=== PATIENT | female | born 1980 | race Two or more races ===

== ENCOUNTER 2018-05-16 12:56 | Inpatient (IN) | payer OTHER ==
--- NOTE | 2018-05-16 13:13 | EDPHY ---
H & P Time Seen by Provider: 05/16/18 13:01 HPI/ROS: HPI M1 hold, borderline personality disorder. 46-year-old female by ambulance on an M1 hold from the walk-in clinic of [facility]. She was seen by [facility] in the clinic about an hour ago. She states that she has been doing cocaine and methamphetamine. She was placed on an M1 hold by the staff at [facility] secondary to acute psychosis. She has a diagnosis borderline personality disorder. She tells me that she has 13 different personalities and a oral pick her ring but she is currently trying to keep things under control. There is no history of trauma. She denies alcohol or other ingestion. She denies being suicidal. ROS: Constitutional: No fever, no chills. No weakness. Eyes: No discharge. No changes in vision. ENT: No sore throat. No nasal congestion or rhinorrhea. Respiratory: No cough. No shortness of breath. Cardiac: No chest pain, no palpitations. Gastrointestinal: No abdominal pain, no vomiting, no diarrhea. Genitourinary: No hematuria. No dysuria or increased frequency with urination. Musculoskeletal: No back pain. No neck pain. No myalgias or arthralgias. Skin: No rashes. Neurological: No headache. No focal weakness or altered sensation. Past medical history: Borderline personality disorder. Social history: She denies smoking. Denies alcohol. Methamphetamine and cocaine today. Physical Exam: General Appearance: Alert, agitated, motion labile. This patient is responding to questions appropriately and in full sentences. This patient appears well-hydrated and well-nourished. Eyes: Pupils equal and round no pallor or injection. No lid edema, erythema or injection. Respiratory: There are no retractions, lungs are clear to auscultation with good air movement bilaterally. Cardiovascular: Regular rate and rhythm. No murmur. Gastrointestinal: Abdomen is soft and nontender, no masses, bowel sounds normal. No focal tenderness at McBurney's point. No Parker sign. Neurological: Motor sensory function is grossly intact. Cranial nerves are normal. Gait is normal. Skin: Warm and dry, no rashes. Musculoskeletal: Neck is supple and nontender. Extremities are symmetrical. All joints range without pain or impingement. Psychiatric: As above. Database: EKG: Imaging: Procedures: Emergency department course: Triage vital signs reviewed. Patient has been evaluated by [facility]. She was sent here on an M1 hold by them. 3:20 p.m., the patient is still awaiting evaluation by Behavioral Health. She will likely be admitted for inpatient management. Blood work and urine reviewed. She has a normocytic anemia. No prior records do indicate whether this is chronic. Denies any rectal bleeding or black stool. No lightheadedness. Vital signs have been normal. Assuming patient admitted for inpatient management will have a CBC recheck tomorrow. 9:00 p.m., the patient has been seen and evaluated by Behavioral Health. Tentative plan is transfer to [address] [place] [address]. Care turned over to Dr. Roddy Balderas at this time. Differential Diagnosis: The differential diagnosis on this patient includes but is not limited to acute psychosis, acute royce, schizophrenia, borderline personality disorder. This represents a partial list of diagnoses considered. These considerations are based on history, physical exam, past history, reassessment and diagnostic testing. Constitutional: Initial Vital Signs Temperature (C) 36.9 C 05/16/18 13:38 Heart Rate 84 05/16/18 13:38 Respiratory Rate 18 05/16/18 13:38 Blood Pressure 104/58 L 05/16/18 13:38 O2 Sat (%) 95 05/16/18 13:38 O2 Delivery Mode Room Air Allergies/Adverse Reactions: No Known Allergies Allergy (Unverified 05/16/18 15:01) Medical Decision Making - Data Points Laboratory Results: Laboratory Results 05/16/18 14:25 05/16/18 13:25 05/16/18 05/16/18 05/16/18 14:25 13:25 13:19 WBC 8.21 10^3/uL 10^3/uL (3.80-9.50) RBC 3.26 10^6/uL L 10^6/uL (4.18-5.33) Hgb 9.8 g/dL L g/dL (12.6-16.3) Hct 29.2 % L % (38.0-47.0) MCV 89.6 fL fL (81.5-99.8) MCH 30.1 pg pg (27.9-34.1) MCHC 33.6 g/dL g/dL (32.4-36.7) RDW 13.1 % % (11.5-15.2) Plt Count 211 10^3/uL 10^3/uL (150-400) MPV 10.4 fL fL (8.7-11.7) Neut % (Auto) 72.1 % % (39.3-74.2) Lymph % (Auto) 18.4 % % (15.0-45.0) [place] % (Auto) 5.7 % % (4.5-13.0) Eos % (Auto) 3.2 % % (0.6-7.6) Baso % (Auto) 0.5 % % (0.3-1.7) Nucleat RBC Rel Count 0.0 % % (0.0-0.2) Absolute Neuts (auto) 5.92 10^3/uL 10^3/uL (1.70-6.50) Absolute Lymphs (auto) 1.51 10^3/uL 10^3/uL (1.00-3.00) Absolute Monos (auto) 0.47 10^3/uL 10^3/uL (0.30-0.80) Absolute Eos (auto) 0.26 10^3/uL 10^3/uL (0.03-0.40) Absolute Basos (auto) 0.04 10^3/uL 10^3/uL (0.02-0.10) Absolute Nucleated RBC 0.00 10^3/uL 10^3/uL (0-0.01) Immature Gran % 0.1 % % (0.0-1.1) Immature Gran # 0.01 10^3/uL 10^3/uL (0.00-0.10) Sodium 137 mEq/L mEq/L (135-145) Potassium 4.9 mEq/L mEq/L (3.3-5.0) Chloride 108 mEq/L mEq/L (97-110) Carbon Dioxide 20 mEq/l L mEq/l (22-31) Anion Gap 9 mEq/L mEq/L (8-16) BUN 14 mg/dL mg/dL (7-23) Creatinine 0.7 mg/dL mg/dL (0.6-1.0) Estimated GFR > 60 Glucose 99 mg/dL mg/dL (70-100) Calcium 8.7 mg/dL mg/dL (8.5-10.4) Beta HCG, Qual Specimen Hemolysis 242 Urine Opiates Screen NEGATIVE (NEGATIVE) Urine Barbiturates NEGATIVE (NEGATIVE) Ur Phencyclidine Scrn NEGATIVE (NEGATIVE) Ur Amphetamine Screen NEGATIVE (NEGATIVE) U Benzodiazepines Scrn NEGATIVE (NEGATIVE) Urine Cocaine Screen NEGATIVE (NEGATIVE) U Marijuana (THC) Screen NON-NEGATIVE H (NEGATIVE) Ethyl Alcohol < 10 mg/dL mg/dL (0-10) 05/16/18 13:05 WBC RBC Hgb Hct MCV MCH MCHC RDW Plt Count MPV Neut % (Auto) Lymph % (Auto) [place] % (Auto) Eos % (Auto) Baso % (Auto) Nucleat RBC Rel Count Absolute Neuts (auto) Absolute Lymphs (auto) Absolute Monos (auto) Absolute Eos (auto) Absolute Basos (auto) Absolute Nucleated RBC Immature Gran % Immature Gran # Sodium Potassium Chloride Carbon Dioxide Anion Gap BUN Creatinine Estimated GFR Glucose Calcium Beta HCG, Qual NEGATIVE Specimen Hemolysis Urine Opiates Screen Urine Barbiturates Ur Phencyclidine Scrn Ur Amphetamine Screen U Benzodiazepines Scrn Urine Cocaine Screen U Marijuana (THC) Screen Ethyl Alcohol Medications Given: Discontinued Medications Olanzapine (Zyprexa Zydis) 10 mg PO EDNOW ONE Stop: 05/16/18 16:49 Last Admin: 05/16/18 17:19 Dose: 10 mg Departure - Departure Disposition: [facility] IP Clinical Impression: Manic behavior, Psychosis Referrals: Patient,NotPresent [Unknown] - As per Instructions
[2018-05-16 14:33] LABS: PLATELET COUNT 211 10^3/uL (150-400)
[2018-05-16] MEDS ORDERED: OLANZapine DISINTEGR 10 MG TAB PO ONE (16:48)
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
--- NOTE | 2018-05-16 20:37 | ASMTTCLDSP ---
TLC Discharge Disposition Disposition: Answers: Admit Disposition Notes: Notes: Pt to be admitted to [address] [place] [address] Discharge Concerns/Recommendations: Notes: In consultation with Dr. Dent, ED MD and completion engineer psychiatrist, Dr. Roxy Conway both concurred that pt meets the 27-65 criteria requiring psychiatric in-pt hospitalization as pt appears to be gravely disabled. Was patient given the Answers: Yes Inpatient Behavioral Health Prohibited Belongings List while in the ED? For inpatient Roxy Conway MD admission, the following psychiatrist agreed to accept patient for admission to [facility] ([facility]): Type of Hold: Answers: M1/72-hour Hold Hold initiated by: Answers: Other Notes: [facility] Date Signed: 05/16/2018 08:36 PM Electronically Signed By:Alice Shankar
[2018-05-16] MEDS ORDERED: MAGNESIUM HYDROXIDE 30 ML UDCUP PO PRN (23:08)
[2018-05-16] MEDS ORDERED: MAG HYDROX/AL HYDROX/SIMETH 30 ML UDCUP PO PRN (23:08)
[2018-05-16] MEDS ORDERED: NICOTINE POLACRILEX 2 MG GUM B PRN (23:08)
[2018-05-17] MEDS: OLANZapine 10 MG TAB PO PRN ×3 (07:29→17:07)
[2018-05-17] MEDS: LORazepam 0.5 MG TAB PO PRN ×3 (07:29→17:07)
--- NOTE | 2018-05-17 08:19 | ASMTBHMTP ---
Master Treatment Plan Master Treatment Plan Answers: Mood Instability with for: Psychosis Date: 05/17/2018 Diagnosis on Admission: 296,89 (F31.81) Bipolar II Disorder, hypomanic, with mood-congruent psychotic features Expected length of stay: 5-7 Reason for admission: Notes: Per TLC report: "This 37 y/o. , but , unemployed, homeless female was seen as a walk-in at the [facility] Crisis clinic and due to her agitation and manic presentation was transported to the [facility] for further evaluation on an M-1. She presented as manic, dysregulated, grandiose. She reports connections with others that are psychic and reports multiple personalities". Patient's stated presenting problems: Notes: "I need to find my baseline. I have multiple personalities". Patient's goals for treatment: Notes: "To be able to leave the hospital with an accurate diagnosis". Patient's strengths: Notes: "My imagination". Identify supports outside of hospital: Notes: No local support system. Discharge criteria: Notes: Ct. will demonstrate more stable mood by discharge. Initial disposition plan/considerations: Notes: Consider [facility] for follow up care in the community. Master Treatment Plan Required Signatures Psychiatrist signature: Answers: Psychiatrist: RN on-shift signature: Answers: RN: Patient signature: Answers: Patient: Date Signed: 05/17/2018 08:19 AM Electronically Signed By:Emely Bills
--- NOTE | 2018-05-17 08:29 | ASMTCMCOM ---
CM Note CM Note Notes: CC met with ct. to develop MTP. Ct. presented as labile, agitated with pressured speech. Grooming was fine. She reported that she would like girma participate in every decision related to her care. She said that she is not interested in taking medications because she would like to know her "baseline". She reported that her brain is "different". She agreed to participate in groups. She has been residing in [place] in the last 14 years and has been receiving services at [facility]. She is not currently interested in returning to [facility] but this may change when she stabilizes. Date Signed: 05/17/2018 08:28 AM Electronically Signed By:Emely Bills
[2018-05-17 08:50] LABS: PLATELET COUNT 381 10^3/uL (150-400)
--- NOTE | 2018-05-17 13:42 | BCON ---
INTERNAL MEDICINE CONSULTATION DATE OF CONSULTATION: 05/17/2018 REFERRING PHYSICIAN: DR. OLVERA REASON FOR REFERRAL: Medical clearance for inpatient behavioral health stay. HISTORY OF PRESENT ILLNESS: This patient was referred to the emergency department yesterday from the walk-in clinic of [facility], where she had presented as manic and psychotic. She was evaluated by the mental health team and admitted for further psychiatric care. She currently complains of feeling fatigued and of having pain "all over my body." PAST MEDICAL HISTORY: 1. Mental health issues with the diagnosis in the chart of borderline personality disorder. 2. She reports a history of cardiac arrhythmia. 3. Anemia. 4. Obesity. PAST SURGICAL HISTORY: She denies any surgeries. MEDICATIONS: Prior to admission, she was on no medications, though she has had 3 recent psychiatric hospitalizations. SOCIAL HISTORY: She is homeless. She has a 12-year-old child, who lives with paternal grandparents. She is a smoker. She has a history of polysubstance abuse but reports no use of cocaine or methamphetamine for several months. FAMILY HISTORY: She is adopted and does not know her family history. REVIEW OF SYSTEMS: Positive for fatigue and sleepiness, pain all over. She denies history of heavy menstrual periods. She reports her weight has been stable. She says that pain is worse when she is under more stress or not sleeping well. She denies increased pain with activity. In fact, she says activity makes the pain better. She says she has some tenderness over her head and neck and currently in her right hand, but otherwise denies tenderness. She denies nausea, vomiting, constipation, or diarrhea. She denies dysuria or urinary frequency. She denies joint pain or joint swelling. Otherwise, a 10- point review of systems is negative. PHYSICAL EXAM: VITAL SIGNS: Blood pressure is 143/70, heart rate 91, respiratory rate is 20, oxygen saturation is 92% on room air. Temperature is 36.8 degrees centigrade. Her weight is 117.9 kg for a body mass index of 43.3. GENERAL: This is a very obese woman, ambulating in the mendieta, dressed in street clothes, cooperative, and in no acute distress. HEENT: Extraocular movements are intact. Mucous members are moist. Dentition is in good condition. She has a crowded airway, Mallampati class 3. NECK: Supple. HEART : There is a regular rate and rhythm with no murmurs, rubs, or gallops. LUNGS : Clear to auscultation bilaterally. ABDOMEN: Benign. EXTREMITIES: There is no cyanosis or clubbing. NEUROLOGIC: She is alert and oriented x3. She is sleepy. Cranial nerves 2-12 are grossly intact. There is no focal weakness. Sensation is intact to light touch, and gait is within normal limits. LABORATORY STUDIES: From yesterday, CBC was initially within normal limits. She must have been hydrated, because subsequently she developed anemia with a hemoglobin of 9.8 and a hematocrit of 29.2. Serum chemistry revealed normal renal function and electrolytes. Her carbon dioxide was slightly low at 20. Hemoglobin A1c was normal at 5.5. Liver function tests revealed an elevated conjugated bilirubin slightly at 0.7 with the upper limit of normal being 0.5. AST was slightly elevated at 68 with the upper limit of normal being 46. ALT was normal. Alkaline phosphatase was slightly elevated at 129 with the upper limit of normal being 126. Lipid panel was without abnormalities. TSH was normal at 0.695. Beta hCG was negative for . Toxicology screen in the urine was non-negative for marijuana but otherwise negative for substances of abuse. Toxicology screen in the serum was negative for ethyl alcohol. ASSESSMENT AND RECOMMENDATIONS: 1. Mental health issues. Pending further evaluation and management per Psychiatry and the mental health team. 2. Anemia, unclear etiology. I will add on a reticulocyte count and iron studies. She reports that she will only take iron in the form of red meat and the dietitian could make a note of this. 3. Obesity. Consider avoiding medications that would cause further weight gain , but psychosocial stabilization takes priority at this point. 4. Tobacco dependence. She was encouraged to stop smoking, and she said she is not smoking very much anymore, though she did take nicotine replacement today. 5. Chronic pain of unclear etiology. I hesitate to consider fibromyalgia, especially without a self report of tenderness. Wonder if this will improve with stabilization of her psychiatric state and improved sleep. 6. Elevated blood pressure. Advise monitoring blood pressure, and if she has consistent elevated blood pressure, would consider initiating medications. 7. Risk for obstructive sleep apnea. She describes snoring, and she has a crowded airway. It would be appropriate to refer her for a sleep study after her discharge. 8. Self report of cardiac arrhythmia. I will get an EKG. I see no medical contraindications to this patient's continued stay on the inpatient behavioral health unit or to any psychiatric medications or procedures. Thank you very much for including me in the care of this patient, and please do not hesitate to contact me or the hospitalist service should there be need for further medical evaluation. /[id number]/MODL MTDD
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
--- NOTE | 2018-05-17 15:11 | PDMN ---
Medical Necessity Medical necessity: Pt meets inpt criteria per MD order and [facility] [id number], Bipolar Disorders, Adult: Inpatient Care, 4 days. Pt admitted on M1 Hold, presented as manic, dysregulated, grandiose requiring inpt hospitalization, anticipate>2MN for eval treatment of bipolar II disorder, hypomanic w/mood- congruent psychotic features.
[2018-05-18] MEDS: OLANZapine 10 MG TAB PO PRN ×2 (05:06→08:57)
[2018-05-18] MEDS: LORazepam 0.5 MG TAB PO PRN (08:57)
--- NOTE | 2018-05-18 14:58 | ASMTCMCOM ---
CM Note CM Note Notes: CC checked in with the patient, who completed an PRAVEEN from [facility] and [facility]. CC sent a referral for services at [facility]. The patient agreed that she would like to seek their services upon discharge. She stated that she was seeing Dr. Sanchez, Ashlyn Rocha, and Marycruz Junior at [facility] prior to March of this year, when Dr. Sanchez retired. She reported that she missed her last appointment with him because she didn't have bus fare and was unable to obtain transport. She stated that she was medication adherent and that she had only missed her last dose by twelve hours prior to [facility] ED admission. The patient stated that she didn't want to work with [facility] anymore because "they don't do there jobs." She also stated that she came to [facility] initially because "I had to do what I had to do to get a safe place to sleep." The patient leaned towards the CC and stated, "I worked the system." CC called and left messages with [facility] staff and Petra Rodriguez, [facility] OP, referring the patient for the DBT-IOP program. Date Signed: 05/18/2018 02:57 PM Electronically Signed By:Karen Nj
--- NOTE | 2018-05-18 16:00 | CPEKG ---
Test Reason : OPEN Blood Pressure : / mmHG Vent. Rate : 059 BPM Atrial Rate : 063 BPM P-R Int : 156 ms QRS Dur : 088 ms QT Int : 408 ms P-R-T Axes : 054 064 054 degrees QTc Int : 405 ms SINUS RHYTHM Confirmed by Jono Carrasquillo ([id number]) on 05/18/2018 4:00:11 PM Referred By: Confirmed By:Jono Carrasquillo
--- NOTE | 2018-05-18 17:54 | SOAPPROG ---
SOAP Progress Note Assessment/Plan: Assessment: 37 yo woman with h/o mood dysregulation and cocaine, meth and THC abuse. She reports h/o "bipolar II" and "multiple personality disorder." Plan: 05/18/18 17:50 1. Patient signed PRAVEEN for [facility] for more collateral information about her previous psych tx. 2. Patient states she wants to stay in [place] to get "housing." 3. [facility] expires 05/19/18 at 1150. Subjective: Patient told CC this AM that she came to [place] to get "better housing." She claims the reason she went to [facility] ED and the [facility] was b/c "I know how to work the system to get a safe place to stay." She admits she didn't feel safe staying on the streets or in the homeless jail and wanted to be in hospital instead. In the past, patient reports she has seen Dr. Sanchez at [facility], but admits she was never compliant with treatment and had missed a lot of her appointments. She wants to get established with [facility] b/c [place] is a "better place to live" than [place]. Patient states she has "multiple voices in multiple bodies." She reports that the meds she took last night and this AM (Olanzapine and Ativan) did "silence the voices." She denies any thoughts, plan or intent to hurt herself or anyone else. Objective: Vital Signs Temp Pulse Resp BP Pulse Ox 36.5 C 95 16 106/68 97 05/18/18 05:23 05/18/18 05:23 05/18/18 05:23 05/18/18 05:23 05/18/18 05:23 MSE: Affect: Euthymic Mood: "OK" TP: Loose, tangential TC: Denies SI/HI Perception: Denies AH/VH currently, says meds "silenced voices" Insight/ Judgment: Impaired - Time Spent With Patient Time Spent With Patient: 15" - Pending Discharge Pending Discharge Within 24 Hours: No Pending Discharge Within 48 Hours: No ICD10 Worksheet Patient Problems: Problems Problem Status Onset Manic behavior Acute Psychosis Acute
[2018-05-18] MEDS: ACETAMINOPHEN 325 MG TAB PO PRN (18:01)
[2018-05-18] MEDS: OLANZapine DISINTEGR 10 MG TAB PO SCH (20:04)
[2018-05-19] MEDS: OLANZapine 10 MG TAB PO PRN (05:44)
[2018-05-19 07:58] VITALS: BP 119/66
[2018-05-19] MEDS: LORazepam 0.5 MG TAB PO PRN (08:02)
[2018-05-19] MEDS: ACETAMINOPHEN 325 MG TAB PO PRN ×3 (08:05→19:34)
[2018-05-19 09:13] LABS: PLATELET COUNT 339 10^3/uL (150-400)
--- NOTE | 2018-05-19 16:50 | SOAPPROG ---
SOAP Progress Note Assessment/Plan: Assessment: 37 yo woman with h/o mood dysregulation and cocaine, meth and THC abuse. She reports h/o "bipolar II" and "multiple personality disorder." Plan: 05/18/18 17:50 1. Patient signed [facility]AVEEN for [facility] for more collateral information about her previous psych tx. 2. Patient states she wants to stay in [place] to get "housing." 3. [facility] expires 05/19/18 at 1150. 05/19/18 16:47 1. Patient has been sleeping most of the day. 2. Patient compliant with meds. 3. Change to voluntary status. Subjective: Patient requests MD and staff "don't wake me up when I'm sleeping." Patient denies SI/HI, she denies any paranoid delusions and hallucinations. She shows no evidence of royce or psychosis. However, she says when people wake her up, " I don't know what personality you're going to find." Objective: Vital Signs Temp Pulse Resp BP Pulse Ox 36.7 C 73 18 119/66 97 05/19/18 07:57 05/19/18 07:57 05/19/18 07:57 05/19/18 07:57 05/19/18 07:57 Laboratory Results 05/19/18 06:30 MSE: Affect: Euthymic Mood: "OK" TP: Linear TC: Denies any SI/HI Perception : Denies AH/VH Insight/Judgment: Poor a/e/b h/o noncompliance and drug abuse - Time Spent With Patient Time Spent With Patient: 15" - Pending Discharge Pending Discharge Within 24 Hours: No Pending Discharge Within 48 Hours: Yes Pending Discharge Date: 05/21/18 (Likely to d/c Mon or Tue once f/u finalized) Pending Discharge Time: 11:00 ICD10 Worksheet Patient Problems: Problems Problem Status Onset Manic behavior Acute Psychosis Acute
[2018-05-19] MEDS: OLANZapine DISINTEGR 10 MG TAB PO SCH (19:33)
[2018-05-20] MEDS: OLANZapine 10 MG TAB PO PRN (06:28)
[2018-05-20] MEDS: LORazepam 0.5 MG TAB PO PRN (06:47)
[2018-05-20] MEDS: ACETAMINOPHEN 325 MG TAB PO PRN (06:50)
--- NOTE | 2018-05-20 11:11 | ASMTBHDC ---
Notes Note: Notes: CC confirms discharge plan: Follow Up With: [facility] [address] [place], [address] O# [phone] [facility]: Sunday-Sunday from 8:30-11:30 & 12:30-14:30; excluding afternoons Please follow up on the @ 08:30 at the above location. This is for the initial 30 minute appointment to do paperwork and CT should bring ID, insurance card, etc. Date Signed: 05/20/2018 11:10 AM Electronically Signed By:Nolan Ocampo
--- NOTE | 2018-05-20 12:08 | BDS ---
REASON FOR ADMISSION: From the ED note dated 05/16/2018, the patient presented to the ED by ambulance on an M1 hold from the walk-in clinic at [facility]. The patient had presented at [facility] approximately 1 hour prior to presenting at the ER. The patient stated that she has been doing cocaine and methamphetamine. The patient was placed on an M1 hold by the staff at [facility] secondary to acute psychosis. The patient has a diagnosis of borderline personality disorder. There is no history of trauma. The patient denied alcohol or other ingestion. The patient denied being suicidal. The patient was admitted involuntarily on an M1 hold due to being gravely disabled due to a mental illness. The patient was admitted for safety, crisis stabilization, and medication evaluation. ADMITTING DIAGNOSES: Borderline personality disorder, malingering, stimulant- induced psychosis, stimulant use disorder amphetamine type. ADMISSION PHYSICAL EXAM: The patient was seen by Dr. Perkins on 05/17/2018, for an internal medicine consultation for medical clearance for inpatient Behavioral Health stay. Dr. Perkins reported he saw no medical contraindications to the patient's continued stay on the inpatient behavioral health unit or to any psychiatric medications or procedures. For further details, please refer to Dr. Perkins's note dated 05/17/2018. ADMISSION LABS: From 05/16/2018, CBC was initially within normal limits. The patient must have been hydrated because subsequently she had developed anemia with a hemoglobin of 9.8 and a hematocrit of 29.2. Serum chemistry revealed normal renal function and electrolytes. The patient's carbon dioxide was slightly low at 20. Hemoglobin A1c was normal at 5.5. Liver function tests revealed an elevated conjugated bilirubin slightly at 0.7, with an upper limit of normal being 0.5. AST was slightly elevated at 68, with the upper limit of normal being 46. ALT was normal. Alkaline phosphatase was slightly elevated at 129, with the upper limit of normal being 126. Lipid panel was without abnormalities. TSH was normal at 0.695. Beta hCG was negative for . Toxicology screen in the urine was nonnegative for marijuana, but otherwise negative for substances of abuse. Toxicology screen in the serum was negative for ethyl alcohol. MAJOR PROCEDURES OR TESTS: None. HOSPITAL COURSE: Patient reported using cocaine and methamphetamine prior to admission. The most prominent symptoms and behaviors while the patient was here were the patient presented irritable, agitated. Sometimes the patient's behavior was hysterical, labile. Target symptoms during hospitalization, acute agitation. Patient reported to patient care manager during interview, "Well, I am here because you have to know how to work the system." Treatment modalities utilized were milieu and group therapy. Zyprexa 5 mg p.o. q.4 hours p.r.n. was started to target acute agitation, was tolerated with no report of side effects and with good response. Ativan 0.5-1 mg p.o. q.4 hours p.r.n. was started to target acute agitation, was tolerated with no report of side effects and with good response. Zyprexa Zydis 10 mg p.o. q.h.s. was started to target acute psychosis, was tolerated with no report of side effects and with good response. The patient has improved considerably, with no psychiatric symptoms and no psychiatric symptoms expressed at discharge. The patient reports she has improved since admission, states to be in stable condition, feels safe to discharge, and she contracts for safety. Patient's response to treatment was good. There were no adverse or unexpected results of treatment. The patient was safe throughout her stay. The treatment team consensus is the patient is in stable condition and is safe to discharge today. CONDITION ON DISCHARGE: Patient is in stable condition and is no longer a danger to self or others, and is not gravely disabled due to mental illness. Patient is no longer in need of inpatient level of care, and can be safely and effectively treated within the community. The patients level of risk at time of discharge is low. MSE: The patient is casually dressed and with good hygiene , and looks stated age. Patient is sitting, posture is upright, and position is relaxed. Patient appears awake, alert, and responds appropriately and reasonably during interview. Patient is engaged, relates well to interviewer, and emotional facial expression is appropriate to situation and changes appropriately with topic. Patient is cooperative, makes comfortable eye contact , and movements are voluntary, deliberate, coordinated, and smooth and even with no inappropriate movements. Patient makes laryngeal sounds effortlessly and shares conversation appropriately; pace of conversation is appropriate, and stream of talking is fluent; articulation is clear and understandable; word choice is effortless and appropriate for education level; completes sentences, occasionally pausing to think; rate and volume are appropriate for interview and setting. Patient reports mood as euthymic. Patients affect is stable with full variable range, congruent with mood, and appropriate to speech and circumstances. Patient has linear and logical thinking, with no loose associations, tangential thought, thought blocking, concrete thinking, or any other signs of formal thought disorder. Patient denies suicidal and homicidal ideation, and denies hallucinations and delusions. Patient appears to be a reliable historian with sound judgement and good insight into current condition. Patient has no apparent dysfunction in recent or remote memory noted , and no evidence of gross cognitive dysfunction noted at any point during the interview. DISCHARGE DIAGNOSES: Borderline personality disorder, malingering, stimulant- induced psychosis, stimulant use disorder amphetamine type. CURRENT MEDICATIONS: None. The patient stated she did not require prescriptions at time of discharge, and no medications are indicated for the patient at this time. DISPOSITION: Patient left hospital independently and voluntarily with plans to go to [facility] walk-in clinic. The patient care manager will accompany the patient to the [facility] for the patient's walk-in appointment. Patient plans to return to [place] to be closer to her daughter. FOLLOWUP: online marketing coordinator reports the appropriate outpatient follow-up services have been established and outpatient appointments have been scheduled. The patient received written instructions with times and dates of outpatient follow-up appointments. The following follow-up recommendations were provided to the patient at discharge: Continue psychotropic medications as prescribed and attend appointments as scheduled. Report any side effects to a psychiatric outpatient provider, a primary care provider, or other health care attendant. Address any questions or problems concerning the psychotropic medications with a psychiatric outpatient provider, a primary care provider, or other health care attendant. Contact [facility] or [facility], or go to the nearest emergency room, if you are ever a danger to yourself/others, or unable to care for yourself. As soon as possible, establish a routine medication management treatment with a psychiatric provider, establish routine therapy appointments, and follow-up with a primary care provider. SUBSTANCE ABUSE BRIEF INTERVENTION: Brief intervention regarding the risks of cocaine and methamphetamine abuse is provided to patient with goal to reduce the risk of harm that could result from the continued use of cocaine and methamphetamine abuse, with the general aim to investigate the problem, raise awareness of problem, develop a solution with the patient, recommend a specific change or activity, and motivate the patient toward change. Assess substance abuse behavior and give supportive advice about harm reduction, recommend a reduction in hazardous/at-risk consumption patterns, and facilitate referrals for additional specialized treatment with patient care manager. Intermediate goal is for the patient to quit use of stimulants and attend NA meetings. Intervention focus on intermediate goals to allow for more immediate success in the treatment process to keep the patient motivated. Review following with patient: Cocaine use risks: Short-term: erratic and violent behavior, panic attacks, paranoia, psychosis; heart rhythm problems, heart attack; stroke, seizure, coma. Long-term: Loss of sense of smell, nosebleeds, nasal damage and trouble swallowing from snorting; infection and of bowel tissue from decreased blood flow; poor nutrition and weight loss; lung damage from smoking. Methamphetamine use risks: Short-term: insomnia, irritability, aggressive behavior, hallucinations, delusions, intellectual deficits, anxiety, depression , convulsions, damage to blood vessels in the brain causing strokes, high fevers , collapse of the circulatory system. Long-term: damage to nerve pathways, maybe irreversibly; overstimulation to dopamine impairing dopamine transport and reducing efficiency of dopamine receptors, the reward system becomes worn out, leading to inability to experience pleasure for years. LEGAL COURSE: The patient was admitted on an M1 hold for involuntary inpatient psychiatric hospitalization. The patient became voluntary during her stay, and the patient discharged today independently and voluntarily. ATTITUDE AT TIME OF DISCHARGE: The patient reports, "I came here to get to my baseline; that was my goal. I am now at my baseline, and I am ready to discharge." The patient reported to the patient care manager during interview, "Well , I had to work the system. I needed a place to stay for a while." The patients attitude was positive at time of discharge, and patient reports looking forward to discharging today. The patient reports she feels safe to discharge, is no longer a danger to herself or others, is in stable condition, and contracts for safety. Patient states she will continue medications as prescribed, and establish medication management treatment with an outpatient provider after discharge. Patient reports she understands the information that has been provided to her, and she understands, accepts, and agrees to psychotropic medications. Patient describes internal protective factors as the coping skills she has learned while hospitalized here, and she plans to continue to practice these coping skills after discharge. LABS AND STUDIES: There were no pending labs or studies at time of discharge. ADVANCE DIRECTIVES: There were no advance directives on file, and the patient was full code during her hospitalization. Review safety plan and the importance to contact [facility] or [facility] , or go to the nearest emergency room, if ever a danger to yourself/others, or unable to care for yourself. Recommend upon discharge to establish routine medication management treatment with a psychiatric provider, establish routine therapy appointments, and follow-up with a primary care provider. Verify patient understands, accepts, and agrees to the information that has been provided. /[id number]
== END 2018-05-20 12:50 | disposition home or self-care (01) | DRG 883 ==
LOC: EDBD 12:56 → BBEH 22:05
PROVIDERS: ADMIT Psychiatry & Neurology Behavioral Neurology & Neuropsychiatry; ATTEND Psychiatry & Neurology Behavioral Neurology & Neuropsychiatry
DX: F60.3 Borderline personality disorder (principal); Z76.5 Malingerer [conscious simulation]; F15.959 Other stimulant use, unspecified with stimulant-induced psychotic disorder, unspecified; D64.9 Anemia, unspecified; E66.9 Obesity, unspecified; F17.200 Nicotine dependence, unspecified, uncomplicated; G89.29 Other chronic pain; F14.90 Cocaine use, unspecified, uncomplicated; F12.90 Cannabis use, unspecified, uncomplicated; Z59.0 Homelessness
CPT/HCPCS: 80305; 82607-90; G0480